=== PATIENT | male | born 1980 | race Caucasian/White ===

== ENCOUNTER 2019-10-03 07:11 | Emergency (ER) | payer BC ==
[2019-10-03 07:26] VITALS: BP 143/94
[2019-10-03] MEDS ORDERED: Tetan/Diph/Pertus SYR(Tdap)* 0.5 ML SYR(BOOSTRIX) use SYR contains LATEX IM ONE (07:40)
--- NOTE | 2019-10-03 07:40 | UC ---
Skin Complaint HPI - HPI Summary HPI Summary: 41 yo, scraped top of his head on a manohar nail in a crawl space yesterday morning. Wound is mildly tender. Comes for a tetanus booster as his last was 10 years ago. - History of Current Complaint Chief Complaint: UCSkin Time Seen by Provider: 10/03/19 07:35 Stated Complaint: TENTNIS SHOT Hx Obtained From: Patient Onset/Duration: Sudden Onset Skin Exposure Onset/Duration: Hours Ago Timing: Constant Onset Severity: Mild Current Severity: Mild Pain Intensity: 1 Location: Discrete Aggravating Factor(s): Touch Alleviating Factor(s): Nothing Associated Signs & Symptoms: Positive: Negative Related History: Trauma - Allergy/Home Medications Allergies/Adverse Reactions: Allergies Allergy/AdvReac Type Severity Reaction Status Date / Time erythromycin base Allergy Rash Verified 10/03/19 07:38 PMH/Surg Hx/FS Hx/Imm Hx Previously Healthy: Yes - Surgical History Surgical History: Yes Surgery Procedure, Year, and Place: hernia repair - Family History Known Family History: Positive: Non-Contributory - Social History Occupation: Employed Full-time Lives: With Family Alcohol Use: None Substance Use Type: None Smoking Status (MU): Never Smoked Tobacco - Immunization History Most Recent Tetanus Shot: 2008 Review of Systems All Other Systems Reviewed And Are Negative: Yes Constitutional: Positive: Negative Skin: Positive: Negative Eyes: Positive: Negative ENT: Positive: Negative Respiratory: Positive: Negative Cardiovascular: Positive: Other - typical blood pressure is mid 120's over 70's- -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) Neurological: Positive: Negative Psychological: Positive: Negative, Other - chronically poor sleep Is Patient Immunocompromised?: No Physical Exam Triage Information Reviewed: Yes Appearance: Well-Appearing, No Pain Distress Vital Signs: Initial Vital Signs Temp 97.4 F 10/03/19 07:19 Pulse 69 10/03/19 07:19 Resp 16 10/03/19 07:19 BP 143/94 10/03/19 07:19 Pulse Ox 98 10/03/19 07:19 ENT: Positive: Normal ENT inspection Respiratory: Positive: Lungs clear, Normal breath sounds Cardiovascular: Positive: RRR, No Murmur Skin Exam: Other - vertex of head to the left with small crust, about 3 mm, mild erythema Course/Dx - Course Course Of Treatment: TdaP given today for prevention. - Diagnoses Provider Diagnosis: Abrasion head Discharge ED - Sign-Out/Discharge Documenting (check all that apply): Patient Departure All imaging exams completed and their final reports reviewed: No Studies - Discharge Plan Condition: Good Disposition: HOME Patient Education Materials: Diphtheria/Acellular Pertussis/Tetanus Vaccine ( By injection), Abrasion (ED) Referrals: Rohit Rucker MD [Primary Care Provider] - Additional Instructions: Your blood pressure today is elevated to 143/94. Please ensure that you continue to check your blood pressure, and follow up if it remains elevated ( poor sleep can contribute to this.) You have received a [id number] booster today--effective for 10 years. - Billing Disposition and Condition Condition: GOOD Disposition: Home
== END 2019-10-03 07:50 | disposition home or self-care (01) ==
LOC: UCEAST 07:11
DX: S00.01XA Abrasion of scalp, initial encounter (principal); Z23 Encounter for immunization; Z88.1 Allergy status to other antibiotic agents; W45.0XXA Nail entering through skin, initial encounter; Y92.9 Unspecified place or not applicable
CPT/HCPCS: 90471; 90715; 99211; G0463